=== PATIENT | female | born 1970 | race Caucasian/White ===

== ENCOUNTER 2019-02-08 09:09 | Emergency (ER) | payer OTHER ==
[2019-02-08] MEDS ORDERED: NS 1,000 ML IV ONE (09:24)
--- NOTE | 2019-02-08 09:26 | EDPHY ---
H & P Stated Complaint: generalized chest pain seen at /[facility] Time Seen by Provider: 02/08/19 09:19 HPI/ROS: CHIEF COMPLAINT: Chest heaviness HISTORY OF PRESENT ILLNESS: Patient is a 48-year-old healthy female who comes to the emergency department complaining of chest heaviness that began at 6:45 a.m. This morning. She also complains of lightheadedness when walking up and down stairs. She describes it initially was in the center of chin her chest but now is more diffuse. No shortness of breath. No nausea vomiting. No diaphoresis. She went to work but continued to feel bad so presented to an urgent care where they obtained a normal EKG and referred her to the ER. She denies recent travel. No smoking. No hormone use. No leg pain or swelling. Severity: Moderate Modifying factors: None REVIEW OF SYSTEMS: Constitutional: denies: chills, fever, recent illness, recent injury EENTM: denies: blurred vision, double vision, nose congestion Respiratory: denies: cough, shortness of breath Cardiac: See HPI Gastrointestinal/Abdominal: denies: abdominal pain, diarrhea, nausea, vomiting, blood streaked stools Genitourinary: denies: dysuria, frequency, hematuria, pain Musculoskeletal: denies: joint pain, muscle pain Skin: denies: lesions, rash, jaundice, bruising Neurological: denies: headache, numbness, paresthesia, tingling, dizziness, weakness Hematologic/Lymphatic: denies: blood clots, easy bleeding, easy bruising Immunologic/allergic: denies: HIV/AIDS, transplant 10 systems reviewed and negative except as noted EXAM: GENERAL: Well-appearing, well-nourished and in no acute distress. HEAD: Atraumatic, normocephalic. EYES: Pupils equal round and reactive to light, extraocular movements intact, sclera anicteric, conjunctiva are normal. ENT: TMs normal, nares patent, oropharynx clear without exudates. Moist mucous membranes. NECK: Normal range of motion, supple without lymphadenopathy or JVD. LUNGS: Breath sounds clear to auscultation bilaterally and equal. No wheezes rales or rhonchi. HEART: Regular rate and rhythm without murmurs, rubs or gallops. ABDOMEN: Soft, nontender, normoactive bowel sounds. No guarding, no rebound. No masses appreciated. BACK: No CVA tenderness, no spinal tenderness, step-offs or deformities EXTREMITIES: Normal range of motion, no pitting or edema. No clubbing or cyanosis. NEUROLOGICAL: Cranial nerves II through XII grossly intact. Normal speech, normal gait. 5/5 strength, normal movement in all extremities, normal sensation , normal reflexes PSYCH: Normal mood, normal affect. SKIN: Warm, dry, normal turgor, no visible rashes or lesions. Source: Patient Exam Limitations: No limitations - Personal History LMP (Females 10-55): Irregular Current Tetanus Diphtheria and Acellular Pertussis (TDAP): Yes - Medical/Surgical History Hx Asthma: No Hx Chronic Respiratory Disease: No Hx Diabetes: No Hx Cardiac Disease: No Hx Renal Disease: No Hx Cirrhosis: No Hx Alcoholism: No Hx HIV/AIDS: No Hx Splenectomy or Spleen Trauma: No Other PMH: nasal fx, concussion - Family History Significant Family History: No pertinent family hx - Social History Smoking Status: Never smoked Alcohol Use: None Constitutional: Initial Vital Signs Temperature (C) 36.6 C 02/08/19 09:12 Heart Rate 67 02/08/19 09:12 Respiratory Rate 18 02/08/19 09:12 Blood Pressure 125/84 H 02/08/19 09:12 O2 Sat (%) 98 02/08/19 09:12 O2 Delivery Mode Room Air Allergies/Adverse Reactions: codeine [Codeine] Allergy (Verified 02/08/19 09:12) Home Medications: Medication Instructions Recorded NK [No Known Home Meds] 02/08/19 Medical Decision Making - Diagnostics Imaging: Discussed imaging studies w/ call circuit worker Radiologist ED Course/Re-evaluation: 10:20 a.m. the patient's imaging and lab work is all very reassuring. She states that her symptoms have improved with IV hydration. We engaged in shared decision making and I recommended a repeat troponin. She declines this and states that she does not think that it is her heart. She states that she has only been getting 4 hr sleep for the last 2 weeks and is looking forward to her schedule change today and getting more sleep. She also played hockey yesterday and thinks that she may have strained her chest playing hockey. Discussed indications for returning. I will have her follow up with Cardiology for stress testing. Differential Diagnosis: Partial list of the Differential diagnosis considered include but were not limited to; contusion, fatigue, acute coronary disease, PE and although unlikely based on the history and physical exam, I also considered pneumonia, pneumothorax, dissection. I discussed these differential diagnoses and the plan with the patient as well as the usual and expected course. The patient understands that the diagnosis is provisional and that in medicine we are not always correct and that further workup is often warranted. Usual and customary warnings were given. All of the patient's questions were answered. The patient was instructed to return to the emergency department should the symptoms at all worsen or return, otherwise to followup with the physician as we discussed. - Data Points Laboratory Results: Laboratory Results 02/08/19 09:22 02/08/19 09:22 Medications Given: Discontinued Medications Sodium Chloride (Ns) 1,000 mls @ 0 mls/hr IV EDNOW ONE; Wide Open PRN Reason: Protocol Stop: 02/08/19 09:25 Last Admin: 02/08/19 09:42 Dose: 1,000 mls Point of Care Test Results: Chemistry 02/08/19 09:26 POC Troponin I 0.00 ng/mL ng/mL (0.00-0.08) Departure - Departure Disposition: Home, Routine, Self-Care Clinical Impression: Chest pain Qualifiers: Chest pain type: unspecified Qualified Code(s): R07.9 - Chest pain, unspecified Condition: Fair Instructions: Chest Pain (ED) Additional Instructions: The cardiology office will call you to set up follow-up and an outpatient stress test. Referrals: NONE *PRIMARY CARE P,. [Primary Care Provider] - As per Instructions Milla Galeano MD [Medical Doctor] - As per Instructions
[2019-02-08 09:34] LABS: PLATELET COUNT 300 10^3/uL (150-400)
--- NOTE | 2019-02-08 09:42 | CPEKG ---
Test Reason : OPEN Blood Pressure : / mmHG Vent. Rate : 061 BPM Atrial Rate : 060 BPM P-R Int : 127 ms QRS Dur : 085 ms QT Int : 425 ms P-R-T Axes : 073 048 047 degrees QTc Int : 428 ms Sinus rhythm Confirmed by Ernesto Alvarez ([id number]) on 02/08/2019 9:41:51 AM Referred By: Ernesto Alvarez Confirmed By:Ernesto Alvarez
[2019-02-08 09:43] LABS: INR 0.99 (0.83-1.16); PROTIME(PATIENT) 12.7 SEC (12.0-15.0)
[2019-02-08 10:44] VITALS: BP 132/78
== END 2019-02-08 10:44 | disposition home or self-care (01) ==
DX: R07.9 Chest pain, unspecified (principal); E86.9 Volume depletion, unspecified
CPT/HCPCS: 84484-ER